=== PATIENT | female | born 1970 | race Caucasian/White ===

== ENCOUNTER 2023-03-13 15:50 | Inpatient (IN) | payer SELFPAY ==
[~2023-03-13] VITALS: Ht 160 cm; Wt 76.2 kg
[2023-03-13] MEDS ORDERED: novolog (15:52)
[2023-03-13] MEDS ORDERED: crestor (15:52)
[2023-03-13 16:39] LABS: BASOPHILS % 0.8 % (0.0-2.0); EOSINOPHILS % 0.9 % (0.0-5.0); HEMATOCRIT. 41.7 % (36.0-48.0); HEMOGLOBIN. 14.1 g/dL (12.0-16.0); LYMPHOCYTES % 29.4 % (20.0-50.0); MEAN CORPUSCULAR HEMOGLOBIN 29.9 pg (28.0-32.0); MEAN CORPUSCULAR HGB CONC 33.7 g/dL (31.0-37.0); MEAN CORPUSCULAR VOLUME 88.5 fL (81.0-99.0); MEAN PLATELET VOLUME 7.8 fl (7.4-10.4); MONOCYTES % 9.1 % (2.0-8.0); NEUTROPHILS % 59.8 % (40.0-76.0); PLATELET 260 x1000/uL (130-400); RED BLOOD CELL COUNT 4.71 mill/uL (4.2-5.4); RED CELL DISTRIBUTION WIDTH 14.1 % (11.6-14.6); WHITE BLOOD COUNT 8.5 x1000/uL (4.5-11.0)
[2023-03-13 16:42] LABS: DIFFERENTIAL COMMENT 1
[2023-03-13 16:45] LABS: CHLORIDE 106 mEq/L (98-107); INDEX HEMOLYSI 1 (1-3); INDEX ICTERIC 1 (1-4); INDEX LIPEMIC 1 (1-3); POTASSIUM 3.6 mEq/L (3.5-5.1); SODIUM 141 mEq/L (136-145)
[2023-03-13 16:53] LABS: ALANINE AMINOTRANSFERASE 25 IU/L (13-61); ASPARTATE AMINOTRANSFERASE 21 IU/L (15-37); BILIRUBIN TOTAL 0.4 mg/dL (0.1-1.0); CALCIUM 8.6 mg/dL (8.5-10.1); CARBON DIOXIDE 33 mEq/L (21-32); NT PRO B-TYPE NATRIURETIC PEP 229 pg/mL (5-125); PROTEIN TOTAL 7.4 g/dL (6.0-8.3); UREA NITROGEN BLOOD 13 mg/dL (7-21)
[2023-03-13 16:58] LABS: GLUCOSE 45 mg/dL (70-105)
[2023-03-13 16:59] LABS: TROPONIN I HIGH SENSITIVITY 97 ng/L (<54)
[2023-03-13 18:57] LABS: TROPONIN I HIGH SENSITIVITY 98 ng/L (<54)
[2023-03-13] MEDS ORDERED: ONDANSETRON HCL 4MG/2ML INJ IV ONE (19:45)
[2023-03-13] MEDS ORDERED: ASPIRIN 325MG EC TABLET PO ONE (19:45)
[2023-03-13] MEDS ORDERED: CLOPIDOGREL 75MG TABLET PO ONE (19:45)
[2023-03-13] MEDS ORDERED: MORPHINE SULFATE 4 MG/ML CPJ (NOT FOR IM USE) IV ONE ×2 (19:45→22:00)
[2023-03-13] MEDS ORDERED: HEPARIN 5000 UNITS/ML VIAL IV ONE (19:45)
[2023-03-13 20:24] LABS: TROPONIN I HIGH SENSITIVITY 91 ng/L (<54)
[2023-03-13] MEDS ORDERED: HEPARIN 25,000 UNITS PREMIX 250 ML IV SCH ×2 (22:00→23:00)
[2023-03-13 22:27] LABS: PARTIAL THROMBOPLASTIN TIME 28.1 sec (23.4-31.0); PROTHROMBIN TIME 11.2 sec (9.6-11.0)
[2023-03-14] VITALS (7 sets, daily range): BP systolic 114–147; BP diastolic 59–73; PULSE 76–90; RESP 13–23; TEMP 97.3–98.4
[2023-03-14] MEDS ORDERED: ACETAMINOPHEN 325MG TABLET PO PRN ×2
[2023-03-14] MEDS ORDERED: CLONIDINE 0.1MG TABLET PO PRN
[2023-03-14] MEDS ORDERED: GUAIFENESIN 200MG/10ML SUGAR FREE UDC PO PRN
[2023-03-14] MEDS ORDERED: MAGNESIUM/ALUMINUM HYDROXIDE/SIMETHICONE 30ML UDC PO PRN
[2023-03-14] MEDS ORDERED: DOCUSATE SODIUM 100MG CAPSULE PO PRN
[2023-03-14] MEDS ORDERED: DEXTROSE 50% WATER 50ML SYRINGE IV PRN (01:30)
[2023-03-14] MEDS ORDERED: NALOXONE HCL 0.4MG/ML VIAL IV PRN (02:30)
[2023-03-14] MEDS: MORPHINE SULFATE 2 MG/ML CPJ (NOT FOR IM USE) IV PRN ×3 (03:07→13:11)
[2023-03-14] MEDS ORDERED: HEPARIN BOLUS PRN aPTT <30 IV (05:00)
[2023-03-14] MEDS ORDERED: HEPARIN BOLUS PRN aPTT 30-44 IV (05:00)
[2023-03-14] MEDS ORDERED: HEPARIN 25,000 UNITS PREMIX 250 ML IV SCH ×2 (05:45→06:00)
[2023-03-14 06:06] LABS: *AMPHETAMINES SCREEN URINE NEGATIVE (NEGATIVE); *BARBITURATES SCREEN URINE NEGATIVE (NEGATIVE); *BENZODIAZEPINES SCREEN URINE NEGATIVE (NEGATIVE); *COCAINE SCREEN URINE NEGATIVE (NEGATIVE); CANNABINOID URINE SCREEN NEGATIVE (NEGATIVE); ECSTASY MDMA SCREEN URINE NEGATIVE (NEGATIVE); METHADONE URINE SCREEN NEGATIVE (NEGATIVE); OPIATES URINE SCREEN PRESUMTIVE POSITIVE (NEGATIVE); PHENCYCLIDINE URINE SCREEN NEGATIVE (NEGATIVE)
[2023-03-14 07:01] LABS: CHLORIDE 103 mEq/L (98-107); INDEX HEMOLYSI 1 (1-3); INDEX ICTERIC 1 (1-4); INDEX LIPEMIC 1 (1-3); POTASSIUM 3.6 mEq/L (3.5-5.1); SODIUM 139 mEq/L (136-145)
[2023-03-14 07:15] LABS: EOSINOPHILS % 2.4 % (0.0-5.0); HEMATOCRIT. 40.4 % (36.0-48.0); HEMOGLOBIN. 13.4 g/dL (12.0-16.0); MEAN CORPUSCULAR HEMOGLOBIN 29.6 pg (28.0-32.0); MEAN CORPUSCULAR HGB CONC 33.3 g/dL (31.0-37.0); MEAN PLATELET VOLUME 8.2 fl (7.4-10.4); MONOCYTES % 9.8 % (2.0-8.0); NEUTROPHILS % 53.8 % (40.0-76.0); PLATELET 236 x1000/uL (130-400); RED BLOOD CELL COUNT 4.53 mill/uL (4.2-5.4); WHITE BLOOD COUNT 8.2 x1000/uL (4.5-11.0)
[2023-03-14 07:16] LABS: CARBON DIOXIDE 33 mEq/L (21-32); GLUCOSE 140 mg/dL (70-105); UREA NITROGEN BLOOD 12 mg/dL (7-21)
[2023-03-14 07:17] LABS: CALCIUM 8.3 mg/dL (8.5-10.1); CHOLESTEROL 123 mg/dL (<200); CREATININE 0.9 mg/dL (0.6-1.3); HDL CHOLESTEROL 71 mg/dL (40-59); LDL CHOLESTEROL 52 mg/dL (5-100); T4 FREE 1.09 ng/dL (0.76-1.46); TRIGLYCERIDE 58 mg/dL (0-150)
[2023-03-14] MEDS ORDERED: DULO60CA45 PO (07:45)
[2023-03-14] MEDS ORDERED: ASPI-1497 PO (07:45)
[2023-03-14] MEDS: ASPIRIN 81MG EC TABLET PO SCH (08:40)
[2023-03-14 12:21] LABS: HEPATITIS B SURFACE ANTIGEN NEGATIVE
[2023-03-14] MEDS ORDERED: NITROGLYCERIN 0.4MG TABLET SL SL PRN (16:30)
[2023-03-14] MEDS: DULOXETINE HCL 60MG DR CAPSULE PO SCH (19:45)
[2023-03-14] MEDS: KETOROLAC 15MG/ML VIAL IV PRN (19:46)
[2023-03-14] MEDS ORDERED: ROPI1TAB46 PO (21:03)
[2023-03-14] MEDS ORDERED: EZET10TA81 PO (21:03)
[2023-03-14] MEDS ORDERED: LAM2 PO (21:03)
[2023-03-14] MEDS: FAMOTIDINE 20MG TABLET PO SCH (21:47)
[2023-03-14] MEDS: ROPINIROLE HCL 1MG TABLET PO SCH (21:48)
[2023-03-14] MEDS: EZETIMIBE 10MG TABLET PO SCH (21:48)
[2023-03-14] MEDS: LAMOTRIGINE 100MG TABLET PO SCH (21:48)
[2023-03-14] MEDS: METOPROLOL TARTRATE 25MG TABLET PO SCH (21:49)
[2023-03-15] VITALS: BP 137/76; PULSE 76; RESP 19; TEMP 98
[2023-03-15 04:00] VITALS: PULSE 64; RESP 15
[2023-03-15 06:30] LABS: TROPONIN I HIGH SENSITIVITY 72 ng/L (<54)
[2023-03-15 08:00] VITALS: BP 137/76; PULSE 72; RESP 25; TEMP 99
[2023-03-15 08:09] LABS: BASOPHILS % 1.1 % (0.0-2.0); EOSINOPHILS % 3.8 % (0.0-5.0); HEMATOCRIT. 38.8 % (36.0-48.0); HEMOGLOBIN. 12.8 g/dL (12.0-16.0); LYMPHOCYTES % 41.2 % (20.0-50.0); MEAN CORPUSCULAR HEMOGLOBIN 29.7 pg (28.0-32.0); MEAN CORPUSCULAR HGB CONC 33.1 g/dL (31.0-37.0); MEAN CORPUSCULAR VOLUME 89.7 fL (81.0-99.0); MEAN PLATELET VOLUME 8.6 fl (7.4-10.4); MONOCYTES % 9.6 % (2.0-8.0); NEUTROPHILS % 44.3 % (40.0-76.0); PLATELET 225 x1000/uL (130-400); RED BLOOD CELL COUNT 4.32 mill/uL (4.2-5.4); RED CELL DISTRIBUTION WIDTH 14.2 % (11.6-14.6); WHITE BLOOD COUNT 6.3 x1000/uL (4.5-11.0)
[2023-03-15 08:44] LABS: CALCIUM 8.7 mg/dL (8.5-10.1); POTASSIUM 4.2 mEq/L (3.5-5.1)
[2023-03-15] MEDS ORDERED: LAMOTRIGINE 100MG TABLET PO SCH (09:00)
[2023-03-15] MEDS: DULOXETINE HCL 60MG DR CAPSULE PO SCH (09:21)
[2023-03-15] MEDS: ASPIRIN 81MG EC TABLET PO SCH (09:21)
[2023-03-15] MEDS: METOPROLOL TARTRATE 25MG TABLET PO SCH ×2 (09:25→20:27)
[2023-03-15 12:00] VITALS: BP 123/65; PULSE 81; RESP 20; TEMP 97.2
[2023-03-15] MEDS ORDERED: REGADENOSON 0.4 MG/5 ML IV NR (13:00)
[2023-03-15] MEDS ORDERED: INFLUENZA VACCINE 05/PF 0.5 ML SYRINGE IM ONE (15:45)
[2023-03-15] MEDS: KETOROLAC 15MG/ML VIAL IV PRN (15:49)
[2023-03-15 16:00] VITALS: BP 126/60; PULSE 80; RESP 26
[2023-03-15 20:00] VITALS: BP 122/59; PULSE 85; RESP 20; TEMP 98.9
[2023-03-15] MEDS: FAMOTIDINE 20MG TABLET PO SCH (20:26)
[2023-03-15] MEDS: ROPINIROLE HCL 1MG TABLET PO SCH (20:26)
[2023-03-15] MEDS: EZETIMIBE 10MG TABLET PO SCH (20:26)
[2023-03-15] MEDS: LAMOTRIGINE 100MG TABLET PO SCH (20:27)
[2023-03-15] MEDS ORDERED: EZETIMIBE 10MG TABLET PO SCH (21:00)
[2023-03-15] MEDS ORDERED: ROPINIROLE HCL 1MG TABLET PO SCH (21:00)
[2023-03-16 00:30] VITALS: BP 119/60; PULSE 76; RESP 18; TEMP 98.4
[2023-03-16 04:00] VITALS: BP 128/67; PULSE 63; RESP 20; TEMP 98.2
[2023-03-16 06:08] LABS: BASOPHILS % 0.7 % (0.0-2.0); EOSINOPHILS % 2.9 % (0.0-5.0); HEMATOCRIT. 37.9 % (36.0-48.0); HEMOGLOBIN. 12.8 g/dL (12.0-16.0); LYMPHOCYTES % 39.8 % (20.0-50.0); MEAN CORPUSCULAR HEMOGLOBIN 29.9 pg (28.0-32.0); MEAN CORPUSCULAR HGB CONC 33.9 g/dL (31.0-37.0); MEAN CORPUSCULAR VOLUME 88.4 fL (81.0-99.0); MEAN PLATELET VOLUME 8.1 fl (7.4-10.4); MONOCYTES % 9.3 % (2.0-8.0); NEUTROPHILS % 47.3 % (40.0-76.0); PLATELET 239 x1000/uL (130-400); RED BLOOD CELL COUNT 4.29 mill/uL (4.2-5.4); RED CELL DISTRIBUTION WIDTH 13.7 % (11.6-14.6); WHITE BLOOD COUNT 7.2 x1000/uL (4.5-11.0)
[2023-03-16 06:21] LABS: CHLORIDE 106 mEq/L (98-107); INDEX HEMOLYSI 1 (1-3); INDEX ICTERIC 1 (1-4); INDEX LIPEMIC 1 (1-3); POTASSIUM 3.8 mEq/L (3.5-5.1); SODIUM 139 mEq/L (136-145)
[2023-03-16 06:29] LABS: CALCIUM 8.4 mg/dL (8.5-10.1); CARBON DIOXIDE 30 mEq/L (21-32); CREATININE 0.9 mg/dL (0.6-1.3); GLUCOSE 155 mg/dL (70-105); UREA NITROGEN BLOOD 18 mg/dL (7-21)
[2023-03-16 08:30] VITALS: BP 130/66; PULSE 73; RESP 22; TEMP 98
[2023-03-16] MEDS: DULOXETINE HCL 60MG DR CAPSULE PO SCH (09:13)
[2023-03-16] MEDS: METOPROLOL TARTRATE 25MG TABLET PO SCH (09:13)
[2023-03-16] MEDS: ASPIRIN 81MG EC TABLET PO SCH (09:13)
[2023-03-16] MEDS ORDERED: REGADENOSON 0.4 MG/5 ML IV ONE (10:59)
[2023-03-16 12:00] VITALS: PULSE 66; RESP 18; TEMP 98.3
[2023-03-16 15:54] VITALS: BP 130/66; PULSE 66; TEMP 98.3; O2SAT 99
[2023-03-16] MEDS ORDERED: TOPUD PO (15:54)
[2023-03-16] MEDS ORDERED: METO25TA6 PO (15:54)
[2023-03-16 16:00] VITALS: PULSE 66; RESP 18; TEMP 98.3
== END 2023-03-16 16:30 | disposition home or self-care (01) | DRG 190 ==
LOC: ER 15:50 → MICUSO 22:00 → EDBEDREQ 22:13 → EDBEDREQTM 22:13 → 3WST 03-14 01:37
PROVIDERS: ADMIT Internal Medicine; ATTEND Internal Medicine
DX: I21.4 Non-ST elevation (NSTEMI) myocardial infarction (principal); E10.649 Type 1 diabetes mellitus with hypoglycemia without coma; Z95.1 Presence of aortocoronary bypass graft; E10.319 Type 1 diabetes mellitus with unspecified diabetic retinopathy without macular edema; I25.110 Atherosclerotic heart disease of native coronary artery with unstable angina pectoris; I25.2 Old myocardial infarction; Z95.5 Presence of coronary angioplasty implant and graft; Z91.51 Personal history of suicidal behavior; K21.9 Gastro-esophageal reflux disease without esophagitis; F31.81 Bipolar II disorder; Z82.49 Family history of ischemic heart disease and other diseases of the circulatory system; Z79.899 Other long term (current) drug therapy; Z79.82 Long term (current) use of aspirin; Z79.4 Long term (current) use of insulin; Z79.02 Long term (current) use of antithrombotics/antiplatelets; I10 Essential (primary) hypertension; Z90.711 Acquired absence of uterus with remaining cervical stump; Z96.41 Presence of insulin pump (external) (internal)
CPT/HCPCS: 36415; 71045; 78452; 80048; 80053; 80061; 80305; 82962; 83036; 83880; 84439; 84443; 84484; 85025; 85379; 86803; 87340; 87426; 90686; 93005; 93017; 93306; 99291; A9500; J1644; J1885; J2270; J2405; J2785